=== PATIENT | male | born 1995 | race Caucasian/White ===

== ENCOUNTER 2020-02-23 16:52 | Observation (INO) | payer OTHER, SELFPAY ==
[2020-02-23 17:03] VITALS: BP 140/83; PULSE 78; RESP 16; TEMP 36.6; O2SAT 100; BMI 23.7
--- NOTE | 2020-02-23 17:08 | ED.GENADULT ---
HPI - General Adult General Chief complaint: Upper Respiratory Symptoms Stated complaint: something lodged in throat, trouble swallowing Time Seen by Provider: 02/23/20 17:08 History of Present Illness HPI narrative: 24-year-old gentleman with a complaint of a food bolus(meat) lodged in his upper esophagus. It has been there since noon and he is not able to handle secretions at this point. States that this has happened 7 times previously he has had multiple endoscopies has a known esophageal stricture that has been ballooned at least twice. Each time he reports that they are unable to retrieve the food foreign body and typically have to push it down. 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 He has no other significant medical issues. He and his father are up from [place] working at the [employer]. He has no other significant medical history. Related Data Home Medications Medication Instructions Recorded Confirmed No Known Home Medications 02/23/20 02/23/20 Allergies Allergy/AdvReac Type Severity Reaction Status Date / Time No Known Drug Allergies Allergy Verified 02/23/20 17:09 Review of Systems Review of Systems Narrative: Pertinent positive and negative findings as per HPI Remainder of review of systems is otherwise unremarkable for Constitutional: Fevers, chills, weakness CV: Chest pain, palpitations, dyspnea on exertion Respiratory: Cough, wheeze, dyspnea GI: Nausea, vomiting, diarrhea, change in bowel habits, black or bloody stools : Dysuria, hematuria, flank pain Patient History Medical History Esophageal stricture (Acute) Social History Smoking Status: Never smoker Exam Narrative Exam Narrative: General: Healthy appearing, in no acute distress. Able to give a complete and coherent history. Well-nourished well-developed HEENT: Moist mucous membranes, normal sclera with reactive pupils, unable to swallow his own secretions Neck: No JVD, supple, no adenopathy Respiratory: Lungs are clear to auscultation, no wheezing no rales no rhonchi. Full and symmetrical air movement Cardiac: Regular rate and rhythm no murmurs no bruits Abdomen: Soft nontender good bowel tones, no flank pain Skin: Warm and dry, no rashes Neurologic: Grossly neurologically intact with no obvious asymmetries or abnormalities Extremities: No trauma, well perfused Psych: Cooperative, appropriate insight and affect Initial Vital Signs Initial Vital Signs: Vital Signs Temperature 97.8 F 02/23/20 17:03 Pulse Rate 78 02/23/20 17:03 Respiratory Rate 16 02/23/20 17:03 Blood Pressure 140/83 02/23/20 17:03 Pulse Oximetry 100 02/23/20 17:03 Course Orders Ordered: ED Orders 02/23/20 17:00 COVID19 -ED/INPAT/OR/L&D Stat Sodium Chloride (Normal Saline 0.9%) 1,000 mls @ 1,000 mls/hr IV BOLUS ONE Stop: 02/23/20 18:15 Last Admin: 02/23/20 17:42 Dose: 1,000 mls/hr Documented by: ALYSA Vital Signs Vital signs: Vital Signs - 8 hr 02/23/20 17:03 02/23/20 17:52 Temperature 97.8 F Pulse Rate 78 63 Respiratory Rate 16 12 Blood Pressure 140/83 121/70 Pulse Oximetry 100 99 Medical Decision Making Lab Data Labs: Lab Results 02/23/20 Range/Units 17:00 COVID-19 PCR Negative (Negative) MDM Narrative Medical decision making narrative: 24-year-old gentleman with an esophageal foreign body with a history of previous. Unable to handle secretions. Dr. Stevens, general surgery is contacted. Will evaluate patient in the emergency department with anticipation of EGD to follow. Airway is protected and maintained at this time. Discharge Plan Departure Patient Disposition: Admitted to Surgery Clinical Impression: Esophageal foreign body Qualifiers: Encounter type: initial encounter Qualified Code(s): T18.108A - Unspecified foreign body in esophagus causing other injury, initial encounter Admit Date/Time: 02/23/20 17:53 Admit Provider: Manny Stevens
[2020-02-23] MEDS: SODIUM CHLORIDE 0.9% 1,000 ML 1000 ML IV (17:42)
[2020-02-23 17:52] VITALS: BP 121/70; PULSE 63; RESP 12; O2SAT 99
[2020-02-23 17:55] LABS: COVID19 -Nasal RAPID Negative (Negative)
--- NOTE | 2020-02-23 18:00 | P.HP_ITS ---
History of Present Illness History of Present Illness Date Patient Seen: 02/23/20 Time Patient Seen: 18:00 Chief complaint: something lodged in throat, trouble swallowing Narrative: Patient is a gentleman was eating hamburger and it seems to have obstructed his upper esophagus. This is recurrence problem for him. He has a congenital narrowing and has been dilated multiple times. He has had multiple episodes of obstruction from food. Patient History Medical History Esophageal stricture (Acute) Family & Social History Safety & Behavioral: Feels Safe in Current Yes Environment Been Physically Hurt or No Threatened By a Person Tobacco & Substance use: Smoking Status Never smoker alcohol intake frequency a few times a week Substance Use Type does not use Meds Home Medications and Allergies Home Medications Medication Instructions Recorded Confirmed Type No Known Home Medications 02/23/20 02/23/20 History Allergies Allergy/AdvReac Type Severity Reaction Status Date / Time No Known Drug Allergies Allergy Verified 02/23/20 17:09 Review of Systems Review of Systems ROS: Yes All systems reviewed with the patient and are negative except as otherwise documented Exam Vital Signs (past 8 hours): - 02/23/20 17:03 02/23/20 17:52 Temperature 97.8 F Pulse Rate 78 63 Respiratory Rate 16 12 Blood Pressure 140/83 121/70 Pulse Oximetry 100 99 Oxygen Delivery Method Room Air Narrative Exam Narrative: Cooperative in no apparent distress. Thin gentleman. Eyes are nonicteric. Neck supple there are no nodes in the neck supraclavicular areas trachea is midline mobile. Thyroid is not enlarged. No masses in neck or thyroid. Oral mucosa is pink and moist. There is no lesion. Lungs are clear to auscultation no rales or rhonchi. Equal percussion. Heart regular rate and rhythm without murmur gallop. No heave lift or thrill. Abdomen is scaphoid soft nontender without mass or organ enlargement. Patient is alert and oriented x3. He is well aware of what is going on. Objective Labs Labs: Laboratory Results - last 24 hr 02/23/20 17:00 COVID-19 PCR Negative Assessment & Plan Assessment & Plan narrative: Patient with an obstructed esophagus from food. Will plan to perform an EGD under general anesthesia. He must have airway protection to prevent aspiration especially the food caught in the upper esophagus. The see will be intubated to protect his airway. The risks of bleeding and perforation were discussed with him. He lives in [facility] and will be returning within a week and so I explained to him that I probably will not dilate him as I do not like to do that in the acute phase and he will have to follow up with his doctors there. He understands and had plan to do that anyhow.
--- NOTE | 2020-02-23 18:49 | PM.PREOP ---
Pre-operative Note COVID-19 COVID-19 status: Negative Result date/Date tested (Pos, Neg/Pending): 02/23/20 Interval Note History & Physical reviewed/Exam performed by Physician: Yes Changes to H&P: No
--- NOTE | 2020-02-23 19:03 | PM.OP.ENDO ---
Operative Date/Time/Diagnoses Date of procedure: 02/23/20 Time of procedure: 19:03 Pre-op diagnosis: Esophageal obstruction from food Post-op diagnosis: same Procedure & Clinicians Study performed: EGD Same procedure as scheduled: Yes Indications: Relieve obstruction Surgeon: Manny Stevens Procedure Notes SCOAP/Timeout: Perform Procedure in detail: The patient is a gentleman who underwent general endotracheal anesthesia to prevent it aspiration and protect his airway.. A bite block was inserted and the scope was advanced through it into the esophagus. The esophagus was remarkable for a bolus of food in it. He was alert rather large piece of meat. I was able to push it forward through the GE junction. The stomach insufflated well. There were no lesions seen in the body, antrum or at the incisura. The pyloric channel was patent. The duodenum was unremarkable to the 4th part. The scope was brought back into the stomach and retroflexed. The proximal stomach was normal except for the large chunk of food laying in it.. The scope was straightened and brought out through the esophagus again. No lesions were seen except irritation due to the food bolus. I really did not see a specific point of narrowing.. The scope was removed and the patient tolerated the procedure well. Scope withdrawal time: Not applicable Sedation minutes: 0 (Patient done under general anesthesia with an anesthesiologist performing the procedure) Specimen(s): none sent Complications: none Post-procedure Plan for aftercare: EGD as necessary Follow up: as needed Disposition: PACU
[2020-02-23 19:09] VITALS: BP 131/69; PULSE 74; RESP 11; O2SAT 96
[2020-02-23 19:15] VITALS: BP 126/81; PULSE 77; RESP 12; TEMP 36.7; O2SAT 97
== END 2020-02-23 19:15 | disposition home health service (06) ==
LOC: ED 17:53 → AC 17:55
PROVIDERS: Admitting Provider Specialist; Emergency Provider Emergency Medicine; Referring Provider Emergency Medicine; Visit Provider Specialist
PROC: 0DJ08ZZ Inspection of Upper Intestinal Tract, Via Natural or Artificial Opening Endoscopic (ICD-10-PCS; CPT 43235; principal; 2020-02-23 18:30)
DX: T17.228A Food in pharynx causing other injury, initial encounter (principal); J45.909 Unspecified asthma, uncomplicated; Z11.59 Encounter for screening for other viral diseases
CPT/HCPCS: 43247; 36415; 87635; 96360; 99218; 99284; G0378; J0330; J2704; J3010